=== PATIENT | female | born 1945 | race African-American/Black ===

== ENCOUNTER 2022-03-09 08:58 | Observation (INO) ==
[2022-03-09 09:40] LABS: Basophils % 0.5 % (0.0-0.8); Eosinophils # 0.2 10*3/uL (0.0-0.87); Eosinophils % 2.6 % (0.00-10.9); Hemoglobin 12.8 GM/DL (12.0-16.0); Immature Granulocytes % 0.2 %; Immature Granulocytes Absolute 0.01 #; Lymphocytes # 1.6 10*3/uL (1.4-4.0); Lymphocytes % 28.1 % (21.3-54.2); Mean Corpuscular Volume 96.9 FL (87-102); Monocytes # 0.7 10*3/uL (0.11-0.8); Monocytes % 11.9 % (1.7-12.7); Neutrophils % 56.7 % (38.7-73.9); Platelet Count 119 T/CUMM (130-400); Red Blood Count 4.13 MC/CUMM (3.8-5.5); Red Cell Distribution Width 13.8 % (9.3-17.3); White Blood Count 5.7 T/CUMM (4-12)
[2022-03-09 10:01] LABS: Albumin 4.1 G/DL (3.4-5.0); Bilirubin,Total 0.7 MG/DL (0.20-1.00); Calcium 9.5 MG/DL (8.5-10.1); Osmolality,Calculated 284.3 MOS/KG (273-304); Potassium 3.6 MMOL/L (3.5-5.1); Total Protein 7.8 G/DL (6.4-8.2)
[2022-03-09 10:13] LABS: PT Patient Result 11.3 SECS (10.1-12.1); Partial Thromboplastin Time 27.4 SECS (23.7-32.9)
[2022-03-09 12:22] LABS: Risk Ratio 2.14; VLDL Cholesterol 18.4 MG/DL
[2022-03-09] MEDS ORDERED: hydrALAZINE 20 MG/1 ML VIAL IV STA (13:31)
[2022-03-09] MEDS ORDERED: NICOTINE 21 MG/24 HR PATCH TRANSDERM PRN (13:49)
[2022-03-09] MEDS ORDERED: ACETAMINOPHEN 325 MG TABLET PO PRN (13:49)
[2022-03-09] MEDS ORDERED: ONDANSETRON 4 MG/2 ML VIAL IV PRN (13:49)
[2022-03-09] MEDS ORDERED: hydrALAZINE 20 MG/1 ML VIAL IV PRN (14:03)
[2022-03-09] MEDS: ASPIRIN CHEW 81 MG TABLET PO SCH (15:44)
[2022-03-09] MEDS: LOSARTAN 25 MG TABLET PO SCH (15:44)
[2022-03-09] MEDS ORDERED: amLODIPine 10 MG TABLET PO SCH (21:00)
[2022-03-09] MEDS ORDERED: SIMVASTATIN 10 MG TABLET PO SCH (21:00)
[2022-03-10 04:59] LABS: Basophils % 0.4 % (0.0-0.8); Eosinophils # 0.2 10*3/uL (0.0-0.87); Hematocrit 36.4 VOL% (35.7-47.0); Hemoglobin 11.8 GM/DL (12.0-16.0); Immature Granulocytes % 0.2 %; Immature Granulocytes Absolute 0.01 #; Lymphocytes # 1.6 10*3/uL (1.4-4.0); Lymphocytes % 33.1 % (21.3-54.2); Mean Corpuscular HGB Conc 32.4 GM/DL (32-36); Mean Corpuscular Volume 94.3 FL (87-102); Monocytes # 0.7 10*3/uL (0.11-0.8); Monocytes % 15.3 % (1.7-12.7); Platelet Count 104 T/CUMM (130-400); Red Blood Count 3.86 MC/CUMM (3.8-5.5); Red Cell Distribution Width 13.7 % (9.3-17.3); White Blood Count 4.7 T/CUMM (4-12)
[2022-03-10 05:22] LABS: Calcium 8.8 MG/DL (8.5-10.1); Potassium 3.6 MMOL/L (3.5-5.1)
[2022-03-10] MEDS ORDERED: LEVOTHYROXINE 100 MCG TABLET PO SCH (06:30)
[2022-03-10] MEDS ORDERED: LINACLOTIDE 145 MCG CAPSULE PO SCH (07:30)
[2022-03-10] MEDS: LOSARTAN 25 MG TABLET PO SCH (08:36)
[2022-03-10] MEDS: ASPIRIN CHEW 81 MG TABLET PO SCH (08:36)
[2022-03-10 08:47] VITALS: BP 131/66
[2022-03-10] MEDS ORDERED: DOCUSATE SODIUM 100 MG CAPSULE PO SCH (09:00)
[2022-03-10] MEDS ORDERED: PANTOPRAZOLE 40 MG TABLET PO SCH (09:00)
== END 2022-03-10 11:10 | disposition home or self-care (01) ==
LOC: N.EDINP 08:58 → N.ED 08:58 → SUATTDRO 13:49 → N.2E 15:28
PROVIDERS: ADMIT Internal Medicine Geriatric Medicine; ATTEND Internal Medicine